=== PATIENT | male | born 1940 | race Hispanic/Latino ===

== ENCOUNTER 2017-02-16 13:55 | Outpatient (CLI) | payer MEDICARE ==
--- NOTE | 2017-02-17 10:16 | Cat Scan Report ---
CT scan of abdomen and pelvis without IV contrast: History: Renal cancer. Findings: Normal lung bases. No pleural or pericardial effusion. Normal liver spleen pancreas and gallbladder. Antral wall thickening may represent peptic disease. Normal adrenals. Patient status post right nephrectomy. No recurrence of tumor. Cysts left kidney measuring 4.3 x 3.4 cm. Single small calculus lower pole left kidney. No evidence of hydronephrosis. Normal bladder. Prostate measures 4.06 x 4.5 cm with posterior calcification. No free intraperitoneal fluid or air. No evidence of adenopathy. Atherosclerotic aorta without aneurysm. Normal terminal ileum. Evidence of appendectomy. Diverticulosis without evidence of diverticulitis. Right and left inguinal hernia containing fat. Impression: Diverticulosis sigmoid colon. Bilateral inguinal hernia. Left renal cyst.
== END 2017-02-16 13:56 | disposition home or self-care (01) ==
LOC: CT 13:55
PROVIDERS: ATTEND Urology
DX: C64.1 Malignant neoplasm of right kidney, except renal pelvis (principal); K40.90 Unilateral inguinal hernia, without obstruction or gangrene, not specified as recurrent; N28.1 Cyst of kidney, acquired; N20.0 Calculus of kidney; N42.89 Other specified disorders of prostate; K57.30 Diverticulosis of large intestine without perforation or abscess without bleeding; I70.0 Atherosclerosis of aorta; Z90.5 Acquired absence of kidney
CPT/HCPCS: 74176